=== PATIENT | female | born 1965 | race Caucasian/White ===

== ENCOUNTER → 2016-11-30 | Outpatient (CLI) | payer BC | LOC: RAD 11:12 | DX: M25.522 Pain in left elbow (principal) ==

== ENCOUNTER → 2016-12-08 | Outpatient (REF) | payer BC | LOC: LAB 10:23 → EDSTATUS 10:32 | DX: Z00.00 Encounter for general adult medical examination without abnormal findings (principal) ==

== ENCOUNTER → 2017-11-15 | Outpatient (CLI) | payer BC | LOC: RAD 14:15 | DX: M48.02 Spinal stenosis, cervical region (principal); M48.061 Spinal stenosis, lumbar region without neurogenic claudication; Z98.890 Other specified postprocedural states ==

== ENCOUNTER → 2018-06-17 | Outpatient (REF) | payer BC | LOC: LAB 16:12 → EDSTATUS 16:17 | DX: Z02.89 Encounter for other administrative examinations (principal) ==

== ENCOUNTER → 2023-05-31 | Outpatient (CLI) | payer BC ==
[~2023-05-31] MED LIST: BUTALBITAL ACET1 CAP PO; CYMBALTA30 M1 PO; GABAPENTIN100 MG PO; KLONOPIN 1MG1 MG PO; OMEPRAZOLE40 MG PO; ROPINIROLE HY0.25 MG PO; TROKENDI XR50 MG PO
[2023-06-02 16:25] LABS: ADRENOCORTICOTROPIC HORMONE 15 pg/mL (5-27)
== END ==
LOC: LAB 08:33
PROVIDERS: Internal Medicine
DX: Z01.89 Encounter for other specified special examinations (principal)

== ENCOUNTER → 2023-12-06 | Outpatient (CLI) | payer BC ==
[2023-12-06 18:11] LABS: CLUE CELLS NOT OBSERVED (Not Observd)
== END ==
LOC: LAB 17:45
PROVIDERS: Nurse Practitioner Family
DX: L29.3 Anogenital pruritus, unspecified (principal); R30.0 Dysuria
CPT/HCPCS: Q0111

== ENCOUNTER → 2023-12-28 | Outpatient (REF) | payer BC ==
[2023-12-28 17:10] LABS: BASO # 0.03 K/mm3 (0.02-0.10); EOS # 0.17 K/mm3 (0.04-0.40); EOS % 2.6 % (1.0-5.0); HEMATOCRIT 35.7 % (37.0-47.0); HEMOGLOBIN 11.1 g/dL (12.5-16.0); LYMPH# 2.67 K/mm3 (1.50-4.00); MEAN CELL VOLUME 102 fl (78-100); MEAN CORPUSCULAR HEMOGLOBIN 32 pg (27-31); MEAN CORPUSCULAR HGB CONC 31 g/dL (33-37); MEAN PLATELET VOLUME 10.3 fl (7.4-10.4); NEU # 3.25 K/mm3 (1.40-6.50); PLATELET COUNT 224 K/mm3 (130-400); RED BLOOD COUNT 3.51 M/mm3 (4.10-5.30); RED CELL DISTRIBUTION WIDTH 13.6 % (11.5-14.5); WHITE BLOOD COUNT 6.5 K/mm3 (4.8-10.8)
== END ==
LOC: LAB 16:58
PROVIDERS: Internal Medicine
DX: D64.9 Anemia, unspecified (principal)